=== PATIENT | female | born 2005 | race Native Hawaiian/Other Pacific Islander ===

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

== ENCOUNTER 2025-01-25 10:18 | Emergency (ER) | payer OTHER, SELFPAY ==
--- NOTE | 2025-01-25 10:19 | ED_ITS ---
HPI - Female Genitourinary General Chief complaint: Urogenital-Female Stated complaint: STD Exposure Time Seen by Provider: 01/25/25 10:32 Source: patient, RN notes reviewed and old records reviewed Mode of arrival: ambulatory Limitations: no limitations History of Present Illness HPI Narrative: 19-year-old female presents to the [facility] with concerns of having unprotected sex 1 week ago, partner had tested positive for chlamydia. Last menstrual period was approximately 1 week ago. Denies any symptoms. No itching, burning with urination. Denies any discharge Related Data Home Medications ?Medication ?Instructions ?Recorded ?Confirmed ?Last Taken ?Type escitalopram oxalate 20 mg tablet mg 01/25/25 Unknown History Allergies Allergy/AdvReac Type Severity Reaction Status Date / Time No Known Allergies Allergy Unknown Verified 01/25/25 10:34 Review of Systems Review of Systems: All systems reviewed & are unremarkable except as noted in HPI and below Constitutional: Constitutional: Reports no additional constitutional complaints ENT: Reports system reviewed and no additional complaints, except as documented Cardiovascular: Cardiovascular: Reports no additional cardiovascular complaints, Denies chest pain and Denies dyspnea Respiratory: Respiratory: Reports no additional respiratory complaints, Denies chest congestion, Denies cough and Denies dyspnea Genitourinary: Genitourinary: Reports as per HPI Musculoskeletal: Musculoskeletal: Reports no additional musculoskeletal complaints Integumentary/Breasts: Skin/Breast: Reports system reviewed and no additional complaints, except as docu PMFSH Past Medical History Medical History Sprain of unspecified ligament of right ankle, initial encounter Asthma Unspecified strabismus Restless legs syndrome Plantar warts Iron deficiency Family History Family History Other Alcoholism Depression Social History Social History Social History: Caffeine-soda Smoking status: Never smoker Second hand tobacco smoke exposure: No Alcohol intake: never Substance use: never Substance use type: does not use Lack of Transportation: No Lack of Food: Never True Current Housing: I Have Housing Concerned About Future Housing: No Difficulty Paying Gas/Electric Bills: No Difficulty Paying for Meds: No Currently Unemployed: No Education: Grade School Difficulty w/ Childcare or Family Care: No Comments At the time of my signature, I reviewed and agree with the nursing past medical, surgical, social, and family history. There is no relevant family history pertinent to the patient complaint. Exam Const: General: cooperative, healthy appearing, comfortable, no acute distress, well developed, alert and well nourished Nutritional Appearance: well nourished Orientation/consciousness: patient oriented x3 Limitations: no limitations HENMT: Head: normal to inspection Mouth: Yes Normal oral and palatal mucosa present, Yes lip normal, Yes tongue normal and Yes moist mucous membranes Eyes: General: appearance normal, both eyes and all related structures Alignment and Position: alignment normal Neck: Neck: normal visual inspection, full ROM, no lymphadenopathy and no meningeal signs Chest: Chest palpation & inspection: normal inspection of the chest Resp: Effort & Inspection: normal respiratory effort and able to speak in complete sentences Auscultation: clear to auscultation bilaterally, no crackles, no rales, no rhonchi and no wheezes Cardio: Rate: regular rate GI: GI Palp: No abdominal tenderness Skin: General skin exam: normal color and no rashes or lesions noted Neuro: General: patient oriented x3, gait normal, moves all extremities and no meningeal signs Cognition (Neuro): normal cognition Speech: normal speech Gait exam (Neuro): Normal gait present Extrem: General: normal to inspection, full ROM, capillary refill normal and normal gait Psych: Appearance: grossly normal and well kempt Mental Status: mental status grossly normal Speech and movement: Normal speech and movement present and Clear speech present Affect: normal affect Attitude: cooperative Course Course Level of Care: Express Care Visit Vital Signs Vital signs: Vital Signs Temperature 98.6 F 01/25/25 10:28 Pulse Rate 115 H 01/25/25 10:28 Respiratory Rate 20 01/25/25 10:28 Blood Pressure 127/82 01/25/25 10:28 Pulse Oximetry 100 01/25/25 10:28 Oxygen Delivery Room Air 01/25/25 10:28 Temperature 98.6 F 01/25/25 10:28 Pulse Rate 115 H 01/25/25 10:28 Respiratory Rate 20 01/25/25 10:28 Blood Pressure 127/82 01/25/25 10:28 Pulse Oximetry 100 01/25/25 10:28 Oxygen Delivery Room Air 10/02/25 10:28 Reviewed MDM - Female Genitourinary MDM Narrative Medical decision making narrative: Patient sitting in exam room. Patient is nontoxic, vitals are stable. Patient presents with an exposure to chlamydia 1 week ago. Discussed doing a swab, offered self swabbing which patient is choosing to do. Patient is appropriate for outpatient treatment with close follow-up Discharge instructions reviewed with patient, as well as provided in writing per nursing staff. The instructions also include specific and strict return/GO TO THE ER as well as f/u information. All questions have been answered, and the patient deny any further questions with discharge and discharge plan. Some parts of this dictation were generated by voice recognition software and may contain typographical and/or grammatical inaccuracies. Differential Diagnosis Differential diagnosis: Likely urinary tract infection, bacterial vaginosis, trichomoniasis, cystitis and other (Chlamydia, gonorrhea) Critical Care Time Critical Care Time Critical Care Time: No Discharge Plan Discharge Clinical Impression: Concern about STD in female without diagnosis, Exposure to chlamydia Patient Disposition: Home Condition: Stable Instructions: Chlamydia (ED), Safe Sex Practices (ED) Additional Instructions: You been tested for chlamydia, gonorrhea and Trichomonas. Test results can take up to 3 days to come back. Due to your exposure for chlamydia we have started you on the antibiotic. If you are positive a please follow-up either with your primary care provider or with a superintendent electric power provider or an STI clinic for further evaluation, testing and treatment if needed Patient Language: Liberian Prescriptions: New doxycycline monohydrate 100 mg tablet 100 mg PO BID Qty: 14 0RF No Action escitalopram oxalate 20 mg tablet 1 mg-20 mcg (24)/75 mg (4) tablet 1 tablet PO DAILY Qty: 84 4RF fluoxetine 20 mg capsule 20 mg PO DAILY Qty: 90 1RF Follow-up/Referrals: Reyes Oliveira MD [Primary Care Provider, Family Practice] - 2 Weeks Time of Disposition: 10:52
[2025-01-25 10:28] VITALS: BP 127/82; PULSE 115; RESP 20; TEMP 37; O2SAT 100
--- OUTSIDE RECORDS SUMMARY | 2025-01-25 10:54 | XMS_ITS | Clinical Summary ---
Author Organization 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 Gender Identity Not on file Sexual Orientation Not on file Obstetrics History Para Term AB IAB SAB Ectopic Multiple Livin g Live Births 1 Date Outcome GA Total Labor Labor//3rd Weight Sex Type Anes PTL [place] A1 A5 Name Clin Growth Chart Information Age Height Weight Lysvti-wrz-spmo th Percentile BMI Percentile Head Circum Head Circum Percentile Date 18 years 172.7 cm (5' 8) 63.5 kg (140 lb) 47.32%* 2023 18 years 172.7 cm (5' 8) 63.5 kg (140 lb) 47.69%* 2023 15 years 172.7 cm (5' 8) 63.5 kg (140 lb) 60.95%* 2021 15 years 66.4 kg (146 lb 6.2 oz) 2020 * [facility] (Girls, 2-20 Years) Last Filed Vital Signs Vital Sign Reading Time Taken Comments Blood Pressure 128/75 04/09/2024 7:37 PM METAL CASKET MAKER Pulse 58 04/09/2024 7:37 PM METAL CASKET MAKER Temperature 36.7 C (98 F) 04/09/2024 7:37 PM METAL CASKET MAKER Respiratory Rate 20 04/09/2024 7:37 PM METAL CASKET MAKER Oxygen Saturation 99% 04/09/2024 7:37 PM METAL CASKET MAKER Inhaled Oxygen Concentration - - Weight 63.5 kg (140 lb) 04/09/2024 7:37 PM METAL CASKET MAKER Height 172.7 cm (5' 8) 04/09/2024 7:37 PM METAL CASKET MAKER Body Mass Index 21.29 04/09/2024 7:37 PM METAL CASKET MAKER Body Mass Index Percentile 47.32% 04/09/2024 7:3 7 PM METAL CASKET MAKER Growth Chart: [facility] (Girls, 2- 20 Years) Plan of Treatment Health Maintenance Due Date Last Done Comments Depression Screening 2005 Hepatitis C Screening 2005 Meningococcal B Vaccine (1 o f 2 - Standard) 2021 Regular Well Visit/Exam 18-64 2023 Covid-19 Vaccine (3 - 2024-2 6 season) 2024 10/01/2020, 09/10/2020 Influenza Vaccine (#1) 2024 0, 03/11/2007, 06/17/2006, Additional history exists DTaP/Tdap/Td Vaccine (7 - Td or Tdap) 11/09/2026 11/09/2016, 06/27/2010, 09/16/2006, Additional history exists Hepatitis B Screening Completed 04/07/2006 , 2005, 2005 Pneumococcal vaccine <65 Completed 007, 2005, 2005, Additional history exists Varicella Vaccines Completed 06/27/2010, 06/17/2006 HPV Vaccines Completed 11/27/2019, 11/09/2016 Meningococcal Vaccine Completed 12/24/2022, 017 Insurance [facility] Care Teams Retail Manager In Training Relationship Specialty Start Date End Date Reyes Oliveira MD PCP - General 12/19/20
--- OUTSIDE RECORDS SUMMARY | 2025-01-25 10:54 | XMS_ITS | Clinical Summary ---
Author Organization [facility] Address [address] [place] [address] Care Team Providers Care Electric Frying Pan Repairer Name Role Phone Reyes Oliveira MD Primary Care Provider [phone] Source Comments [facility],non-owned Affiliates and Associated Physician Practices is amultiple site organization consisting of ambulatory clinics and hospital sitesin [place], [place], [place]. This disclosure is being madepursuant to the Care Everywhere program and may not contain all information available regarding this patient. 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 Gender Identity Not on file Sexual Orientation [...] 12/31/2017 5:3 5 PM CDT Growth Chart: [facility] (Girls, 2- 20 Years) Plan of Treatment Health Maintenance Due Date Last Done Comments HIV SCREENING 2020 HPV VACCINE (1 - 3-dose series) 2020 CHLAMYDIA/GONORRHEA SCREENING 2021 MENINGOCOCCAL (Group B) VACC INE SHARED DECISION-MAKING (1 of 2 - Standard) 2021 HEPATITIS C SCREENING 06/06/2023 DEPRESSION SCREENING 04/26/2024 DTAP/TDAP/TD VACCINES (1 - Tdap) 2024 HEPATITIS B VACCINE (1 of 3 - 19+ 3-dose series) 2024 COVID-19 VACCINE (1 - 2023-2 5 season) 2024 INFLUENZA VACCINE (#1) 2024 ZOSTER VACCINE [...] topic Insurance MEDICAID - [place] Care Teams Electric Frying Pan Repairer Relationship Specialty Start Date End Date Reyes Oliveira MD [address] [place] [id number] PCP - General 07/10/11
--- OUTSIDE RECORDS SUMMARY | 2025-01-25 10:54 | XMS_ITS | Clinical Summary ---
Author Organization [facility] Address [address] [place] [address] Phone Care Team Providers Care Process Planner Name Role Phone Reyes Oliveira MD Primary Care Provider [phone]- [phone] Allergies No known active allergies Medications ondansetron (ZOFRAN) 4 MG Tablet Take 1-2 Tablets by mouth every 8 hours as needed for Nausea - 1st line. 10 Tablet 11/14/2024 Active Encounters Date Type Department Care Team Description 11/14/2024 7:58 AM CDT - 11/14/2024 10:37 AM CDT Emergency [facility] Emergency [address] [place] [address] Jordan Whitt MD Nausea and vomiting, unspecified vomiting type Discharge Disposition: Discharged to home or Selfcare 11/14/2024 Travel from Last 3 Months Social History Tobacco Use Types Packs/Day Years Used Date Smoking Tobacco: Never Smokeless Tobacco: Never Tobacco Cessation:Counseling Given: Not Answered Comments Unknown Sex and Gender Information Value Date Recorded Sex Assigned at Female 11/14/2024 8:27 AM CDT Legal Sex Female 9:32 PM CDT Gender Identity Female 11/14/2024 8:26 AM CDT Sexual Orientation Not on file Last Filed Vital Signs Vital Sign Reading Time Taken Comments Blood Pressure 136/86 11/14/2024 10:15 AM CDT Pulse 104 11/14/2024 10:30 AM CDT Temperature 35.5 C (95.9 F) 11/14/2024 8:00 AM CDT Respiratory Rate 18 11/14/2024 10:15 AM CDT Oxygen Saturation 99% 11/14/2024 10:30 AM CDT Inhaled Oxygen Concentration - - Weight 63.5 kg (140 lb) 11/14/2024 8:00 AM CDT Height 170.2 cm (5' 7) 11/14/2024 8:00 AM CDT Body Mass Index 21.93 11/14/2024 8:00 AM CDT Plan of Treatment Health Maintenance Due Date Last Done Comments Hepatitis C Virus (HCV) Screening 2005 Meningococcal B Immunization (1 of 2 - Standard) 2021 Influenza Immunization (#1) 12/25/202402/24, 06/17/2006, 04/07/2006 SARS-COV-2 Immunization (3 - season) 2024 10/01/2020, 09/10/2020 Respiratory Syncytial Virus (RSV) Immunization (Adult) (1 - 1-dose 75+ series) 2080 Hepatitis B Immunization Completed 006, 2005, 2005 Pneumococcal Immunization Combined Aged Out 06/17/2006, 2005, 2005, Additional history exists No longer eligible based on patient's age to complete this topic TdaP Immunization Completed 11/09/2016 Human Papillomavirus (HPV) Immunization Completed 11/27/2019, 11/09/2016 Meningococcal Immunization (ACWY) Completed 12/24/2022, 11/09/2016 Rotavirus Immunization Aged Out No lo nger eligible based on patient's age to complete this topic Procedures Procedure Name Priority Date/Time Associated Diagnosis Comments URINALYSIS REFLEX IF INDICATED BY ABNORMAL RESULTS STAT 11/14/2024 9:[address] ABDOMEN PELVIS W/ CONTRAST Stat with Interpretation 11/14/2024 8:50 AM CDT CBC WITH AUTO DIFFERENTIAL STAT 11/14/2024 8:03 AM CDT PROTIME (PT) (PROTHROMBIN TIME) STAT 11/14/2024 8:03 AM CDT APTT (PTT) STAT 11/14/2024 8:03 AM CDT MAGNESIUM (MG) STAT 11/14/2024 8:03 AM CDT LIPASE STAT 11/14/2024 8:03 AM CDT CMP (COMPREHENSIVE METABOLIC PANEL) STAT 11/14/2024 8:03 AM CDT COMPLETE BLOOD COUNT (CBC) WITH DIFF STAT 11/14/2024 8:03 AM CDT HUMAN CHORIONIC GONADOTROPIN SCRN SERUM STAT 11/14/2024 8:03 AM CDT from Last 3 Months Results * (ABNORMAL) Urinalysis w/ Reflex (11/14/2024 9:22 AM CDT) SPECIFIC GRAVITY 1.005 1.003 - 1.030 11/14/2024 10:15 AM CDT [facility] URINE PH 7.0 5.0 - 9.0 11/14/2024 10:15 AM CDT [facility] WBC ESTERASE Negative Negative 11/14/2024 10:15 AM CDT [facility] NITRITE Positive(A) Negative 11/14/2024 10:15 AM CDT [facility] PROTEIN, RANDOM URINE 15 mg/dL(A) Negative 11/14/2024 10:15 AM CDT [facility] URINE GLUCOSE, QUAL Negative Negative 11/14/2024 10:15 AM CDT [facility] URINE KETONES 5 mg/dL(A) Negative 11/14/2024 10:15 AM CDT [facility] UROBILINOGEN Normal Normal mg/dL 11/14/2024 10:15 AM CDT [facility] URINE BLOOD Negative Negative susi/ul 11/14/2024 10:15 AM CDT [facility] URINALYSIS COLOR Yellow 11/15/19 10:15 AM CDT [facility] URINALYSIS CLARITY Slightly Cloudy 11/14/2024 10:15 AM CDT [facility] WBC (Urine) 0-5 Negative, 0-5 /hpf 11/14/2024 10:15 AM CDT [facility] URINE RBC'S Negative Negative, 0-2 /hpf 11/14/2024 10:15 AM CDT [facility] EPITHELIAL CELLS Small amount /lpf 2024 10:15 AM CDT [facility] BACTERIA, URINE Many(A) Negative /hpf 11/14/2024 10:15 AM CDT [facility] Urine URINE SPECIMEN / Unknown Non-Phlebotomy Collection / Unknown 11/14/2024 9:22 AM CDT 11/14/2024 9:48 AM CDT us Jordan Whitt MD URINE ORDERABLES Final Re sult [facility] [address] [place] [address] * CT ABDOMEN PELVIS W/ CONTRAST (11/14/2024 8:50 AM CDT) Anatomical Region Laterality Modality Abdomen N/A Computed Tomogra phy 11/14/2024 9:14 AM CDT Impressions 11/14/2024 9:17 AM CDT IMPRESSION: 1. Two short-segment small bowel intussusception within the left upper quadrant without obvious lead point which are likely transient/incidental. Consider attention on follow-up if symptoms persist or otherwise clinically appropriate. 2. Otherwise, no acute abnormality within the abdomen or pelvis. Narrative 11/14/2024 9:17 AM CDT EXAM DESCRIPTION: CT ABDOMEN PELVIS W/ CONTRAST REASON FOR STUDY: Nausea and vomiting with generalized abdominal pain starting around 2300 last night after drinking alcohol. Patient reports blood in emesis. TECHNIQUE: CT scan of the abdomen and pelvis performed with intravenous and without oral contrast using helical scanning technique with dynamic intravenous contrast injection. Reconstructed coronal and sagittal MPR images reviewed. All images stored on PACS. Automated exposure control was used as a dose optimization technique for this examination. CONTRAST TYPE/DOSE: 100mL of IOPAMIDOL 76 % IV SOLN injected via Intravenous COMPARISON: None REFERENCE: Per ACR white paper recommendations, unless otherwise specified no follow-up imaging is recommended for incidental renal and adrenal lesions per consensus recommendations based on imaging criteria. Further lab evaluation could be pursued based on clinical findings. FINDINGS: LOWER CHEST: No significant pulmonary abnormalities. No effusion. LIVER: No concerning lesions. GALLBLADDER/BILE DUCTS: No significant biliary ductal dilatation. SPLEEN: Normal size. No focal concerning lesions. PANCREAS: No significant ductal dilatation or discrete lesion. ADRENALS: No measurable nodule. KIDNEYS/URETERS: Excreted contrast within the renal collecting systems. No hydronephrosis. BLADDER/URINARY: No significant wall thickening. REPRODUCTIVE: No concerning adnexal lesion, although the ovaries are poorly evaluated by CT. GASTROINTESTINAL: Short-segment small bowel intussusception within the left upper quadrant without obvious lead point (such as 601 image 81). Adjacent mildly prominent fluid-filled small bowel loop measuring up to approximately 2.9 cm (2; 71). Additional short-segment small bowel intussusception within the adjacent segment of bowel in the central abdomen (2; 85). No significant wall thickening. Appendix is not definitively visualized. However, no significant right lower quadrant inflammatory changes. LYMPH NODES: No pathologically enlarged abdominal or pelvic lymphadenopathy. PERITONEUM/RETROPERITONEUM: No ascites or free air. VASCULATURE: No abdominal aortic aneurysm. MUSCULOSKELETAL: No significant abnormality. OTHER: No significant abnormality. THIS IS AN ELECTRONICALLY VERIFIED FINAL REPORT 11/14/2024 9:14 AM - Electronically signed by Jama Goodman M.D. NS: NS Report ID: [id number] Reading Location: [id number] Procedure Note Jama Goodman MD - 11/14/2024 EXAM DESCRIPTION: CT ABDOMEN PELVIS W/ CONTRAST REASON FOR STUDY: Nausea and vomiting with generalized abdominal pain starting around 2300 last night after drinking alcohol. Patient reports blood in emesis. TECHNIQUE: CT scan of the abdomen and pelvis performed with intravenous and without oral contrast using helical scanning technique with dynamic intravenous contrast injection. Reconstructed coronal and sagittal MPR images reviewed. All images stored on PACS. Automated exposure control was used as a dose optimization technique for this examination. CONTRAST TYPE/DOSE: 100mL of IOPAMIDOL 76 % IV SOLN injected via Intravenous COMPARISON: None REFERENCE: Per ACR white paper recommendations, unless otherwise specified no follow-up imaging is recommended for incidental renal and adrenal lesions per consensus recommendations based on imaging criteria. Further lab evaluation could be pursued based on clinical findings. FINDINGS: LOWER CHEST: No significant pulmonary abnormalities. No effusion. LIVER: No concerning lesions. GALLBLADDER/BILE DUCTS: No significant biliary ductal dilatation. SPLEEN: Normal size. No focal concerning lesions. PANCREAS: No significant ductal dilatation or discrete lesion. ADRENALS: No measurable nodule. KIDNEYS/URETERS: Excreted contrast within the renal collecting systems. No hydronephrosis. BLADDER/URINARY: No significant wall thickening. REPRODUCTIVE: No concerning adnexal lesion, although the ovaries are poorly evaluated by CT. GASTROINTESTINAL: Short-segment small bowel intussusception within the left upper quadrant without obvious lead point (such as 601 image 81). Adjacent mildly prominent fluid-filled small bowel loop measuring up to approximately 2.9 cm (2; 71). Additional short-segment small bowel intussusception within the adjacent segment of bowel in the central abdomen (2; 85). No significant wall thickening. Appendix is not definitively visualized. However, no significant right lower quadrant inflammatory changes. LYMPH NODES: No pathologically enlarged abdominal or pelvic lymphadenopathy. PERITONEUM/RETROPERITONEUM: No ascites or free air. VASCULATURE: No abdominal aortic aneurysm. MUSCULOSKELETAL: No significant abnormality. OTHER: No significant abnormality. THIS IS AN ELECTRONICALLY VERIFIED FINAL REPORT 11/14/2024 9:14 AM - Electronically signed by Jama Goodman M.D. NS: NS Report ID: [id number] Reading Location: [id number] IMPRESSION: 1. Two short-segment small bowel intussusception within the left upper quadrant without obvious lead point which are likely transient/incidental. Consider attention on follow-up if symptoms persist or otherwise clinically appropriate. 2. Otherwise, no acute abnormality within the abdomen or pelvis. us Jordan Whitt MD IMG CT ORDERABLES Final R esult * (ABNORMAL) CBC with Auto Differential (11/14/2024 8:03 AM CDT) [facility] WBC 14.29(H) 4.00 - 12.00 10(3)/mcL 11/14/2024 8:14 AM CDT [facility] RBC 4.60 3.80 - 5.30 10(6)/mcL 11/14/2024 8:14 AM CDT [facility] HEMOGLOBIN (HGB) 14.8 12.0 - 15.8 g/dL 11/14/2024 8:14 AM CDT [facility] HEMATOCRIT (HCT) 42.8 36.0 - 47.0 % 11/14/2024 8:14 AM CDT [facility] MCV 93.0 82.0 - 96.0 fL 11/14/2024 8:14 AM CDT [facility] MCH 32.2 26.0 - 34.0 pg 11/14/2024 8:14 AM CDT [facility] MCHC 34.6 31.0 - 36.0 g/dL 11/14/2024 8:14 AM CDT [facility] PLATELET COUNT 380 140 - 440 10(3)/mcL 11/14/2024 8:14 AM CDT [facility] RDW 12.7 11.8 - 15.5 % 11/14/2024 8:14 AM CDT [facility] MPV 9.7 9.7 - 12.4 fL 11/14/2024 8:14 AM CDT [facility] NEUTROPHILS 78.5(H) 47.0 - 73.0 % 11/14/2024 8:14 AM CDT [facility] LYMPHOCYTES 17.5(L) 18.0 - 42.0 % 11/14/2024 8:14 AM CDT [facility] MONOCYTES 2.7(L) 4.0 - 12.0 % 11/14/2024 8:14 AM CDT [facility] EOSINOPHILS 0.1 0.0 - 5.0 % 11/14/2024 8:14 AM CDT [facility] BASOPHILS 0.6 0.0 - 1.0 % 11/14/2024 8:14 AM CDT [facility] IMMATURE GRANULOCYTE 0.6(H) 0.0 - 0.4 % 11/14/2024 8:14 AM CDT [facility] Comment:Immature Granulocyte s includes Metamyelocytes, Myelocytes, and Promyelocytes. ABSOLUTE NEUTROPHILS 11.21(H) 1.60 - 7.70 10(3)/[facility] 11/14/2024 8:14 AM CDT [facility] ABSOLUTE LYMPHOCYTES 2.50 1.30 - 3.20 10(3)/[facility] 11/14/2024 8:14 AM CDT [facility] ABSOLUTE MONOCYTES 0.38 0.20 - 1.00 10(3)/[facility] 11/14/2024 8:14 AM CDT [facility] ABSOLUTE EOSINOPHIL 0.02 0.00 - 0.40 10(3)/[facility] 11/14/2024 8:14 AM CDT [facility] ABSOLUTE BASOPHILS 0.09 0.00 - 0.10 10(3)/[facility] 11/14/2024 8:14 AM CDT [facility] ABSOLUTE IMMATURE GRANULOCYTE 0.09(H) 0.00 - 0.03 10 (3) mcL. 11/14/2024 8:14 AM CDT [facility] NRBC PER 100 WBC 0 11/15/19 8:14 AM CDT [facility] Blood Venipuncture / Unknown 11/14/2024 8:03 AM CDT 11/14/2024 8:11 AM CDT us Jordan Whitt MD HEMATOLOGY ORDERABLES Fin al Result [facility] [address] [place] [address] * (ABNORMAL) PTT (11/14/2024 8:03 AM CDT) PTT 23(L) 24 - 36 sec 11/14/2024 8:27 AM CDT [facility] Blood Venipuncture / Unknown 11/14/2024 8:03 AM CDT 11/14/2024 8:11 AM CDT Narrative [facility] - 11/14/2024 8:27 AM CDT Therapeutic range for unfractionated heparin at 0.3-0.7 U/mL is an aPTT value in the range of 71-100 seconds. Critical value for the PTT test is >= 122 seconds. Jordan Whitt MD HEMATOLOGY ORDERABLES Fin al Result [facility] [address] [place] [address] * PT / INR (11/14/2024 8:03 AM CDT) [facility] PROTIME-PATIENT 13.3 11.6 - 14.8 sec 11/14/2024 8:27 AM CDT [facility] INR 1.0 0.9 - 1.2 11/14/2024 8:27 AM CDT [facility] Comment: Therapeutic Ranges INR = 2.0-3.0: Venous thromb, atrial fib, pul embolism, tissue heart valve, ami. INR = 2.5-3.5: Mechanical heart valve Critical value for INR is >/= 4.5 Blood Venipuncture / Unknown 11/14/2024 8:03 AM CDT 11/14/2024 8:11 AM CDT us Jordan Whitt MD HEMATOLOGY ORDERABLES Fin al Result [facility] [address] [place] [address] * Human Chorionic Gonadotropin Scrn Serum [id number] (11/14/2024 8:03 AM CDT) PREG-HCG Negative Negative 11/14/2024 8:26 AM CDT [facility] Blood Venipuncture / Unknown 11/14/2024 8:03 AM CDT 11/14/2024 8:11 AM CDT us Jordan Whitt MD CHEMISTRY ORDERABLES Digna l Result [facility] [address] [place] [address] * Magnesium Level (11/14/2024 8:03 AM CDT) MAGNESIUM 1.7 1.6 - 2.6 mg/dL 11/14/2024 8:31 AM CDT [facility] Blood Venipuncture / Unknown 11/14/2024 8:03 AM CDT 11/14/2024 8:11 AM CDT us Jordan Whitt MD CHEMISTRY ORDERABLES Digna l Result Performing Organization Address City/[facility]/ZIP Co de Phone Number [facility] [address] [place] [address] * Lipase (11/14/2024 8:03 AM CDT) LIPASE 23 8 - 78 U/L 11/14/2024 8:31 AM CDT [facility] Blood Venipuncture / Unknown 11/14/2024 8:03 AM CDT 11/14/2024 8:11 AM CDT us Jordan Whitt MD CHEMISTRY ORDERABLES Digna l Result Performing Organization Address City/[facility]/ZIP Co de Phone Number [facility] [address] [place] [address] * (ABNORMAL) CMP (11/14/2024 8:03 AM CDT) SODIUM 140 136 - 145 mmol/L 11/14/2024 8:31 AM CDT [facility] POTASSIUM 3.3(L) 3.5 - 5.1 mmol/L 11/14/2024 8:31 AM CDT [facility] CHLORIDE 109(H) 98 - 107 mmol/L 11/14/2024 8:31 AM CDT [facility] CO2, VENOUS 14(L) 22 - 30 mmol/L 11/14/2024 8:31 AM CDT [facility] ANION GAP 20.3(H) <18.0 mmol/L 11/14/2024 8:31 AM T [facility] GLUCOSE 169(H) 70 - 99 mg/dL 11/14/2024 8:31 AM T [facility] BUN 11 5 - 18 mg/dL 11/14/2024 8:31 AM T [facility] CREATININE, BLOOD 0.97 0.60 - 1.00 mg/dL 11/14/2024 8:31 AM T [facility] BUN/CREATININE RATIO 11(L) 12 - 20 ratio 11/14/2024 8:31 AM T [facility] TOTAL PROTEIN 8.6(H) 6.0 - 8.0 g/dL 11/14/2024 8:31 AM T [facility] ALBUMIN 4.5 3.5 - 5.0 g/dL 11/14/2024 8:31 AM T [facility] A/G RATIO 1.1 1.0 - 2.2 11/14/2024 8:31 AM T [facility] CALCIUM 9.7 8.7 - 10.5 mg/dL 11/14/2024 8:31 AM T [facility] T BILI 0.5 0.2 - 1.2 mg/dL 11/14/2024 8:31 AM T [facility] SGOT (AST) 37 <43 U/L 11/14/2024 8:31 AM CDT [facility] SGPT (ALT) 26 <56 U/L 11/14/2024 8:31 AM CDT [facility] ALKALINE PHOSPHATASE 60 40 - 150 U/L 11/14/2024 8:31 AM CDT [facility] GFR, ESTIMATED >60 >=60 11/14/2024 8:31 AM CDT [facility] Comment: Creatinine Clearance is the preferred criteria for selecting drug dose adjustments in renally impaired patients. The GFR is provided as additional pertinent clinical information. GFR is reported in mL/min/1.73 sq m. Calculation based on the Chronic Kidney Disease Epidemiology Collaboration (CKD- EPI) equation refit without adjustment for race. UNABLE TO CALCULATE GFR, EST. 025 8:31 AM CDT [facility] GFR, EST. NONAFRICAN 11/14/2024 8:31 AM CDT [facility] Blood Venipuncture / Unknown 11/14/2024 8:03 AM CDT 11/14/2024 8:11 AM CDT us Jordan Whitt MD CHEMISTRY ORDERABLES Digna l Result [facility] [address] [place] [address] from Last 3 Months Insurance MEDICAID [place] Care Teams Process Planner Relationship Specialty Start Date End Date Reyes Oliveira MD [address] [place] [address] PCP - General Family Medicine 11/14/24
[2025-01-25 20:04] LABS: Trichomonas Vag PCR NOT DETECTED (NOT DETECTE)
== END 2025-01-25 11:04 | disposition home or self-care (01) ==
PROVIDERS: Emergency Provider Nurse Practitioner; PCP Family Medicine
DX: Z11.3 Encounter for screening for infections with a predominantly sexual mode of transmission (principal); Z20.2 Contact with and (suspected) exposure to infections with a predominantly sexual mode of transmission
CPT/HCPCS: 87491; 87591; 87661; 99213; G0463

== ENCOUNTER 2025-02-28 15:16 | Outpatient (CLI) | payer OTHER, SELFPAY ==
[2025-02-28 16:25] LABS: Hepatitis B Surface Antigen Negative (Negative)
[2025-02-28 16:42] LABS: HIV 1/2 Ab P24 Ag Result Negative (Negative)
[2025-02-28 17:21] LABS: Syphilis IgG/IgM Antibody Non-Reactive (Nonreactive)
--- OUTSIDE RECORDS SUMMARY | 2025-03-01 14:50 | XMS_ITS | Clinical Summary ---
Author Organization [facility] Address [address] [place] [address] Phone Care Team Providers Care Lime Kiln Operator Name Role Phone Reyes Oliveira MD Primary Care Provider +1- [phone] Allergies No known active allergies Medications ondansetron (ZOFRAN) 4 MG Tablet Take 1-2 Tablets by mouth every 8 hours as needed for Nausea - 1st line. 10 Tablet 11/14/2024 Active Social History Tobacco Use Types Packs/Day Years [...] age to complete this topic Insurance MEDICAID [place] Care Teams Lime Kiln Operator Relationship Specialty Start Date End Date Reyes Oliveira MD [address] [place] [address] [address] [place] [address] PCP - General Family Medicine 11/14/24
--- OUTSIDE RECORDS SUMMARY | 2025-03-01 14:50 | XMS_ITS | Clinical Summary ---
Author Organization [facility] Address [address] [place] [address] Care Team Providers Care Labor Contractor Name Role Phone Reyes Oliveira MD Primary Care Provider +1- [phone] Source Comments [facility],non-owned Affiliates and Associated Physician Practices is amultiple site organization consisting of ambulatory clinics and hospital sitesin [place], [place], [place] and [place]. This disclosure is being madepursuant to the Care Everywhere program and may not contain all information available regarding this patient. 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
--- OUTSIDE RECORDS SUMMARY | 2025-03-01 14:50 | XMS_ITS | Clinical Summary ---
Author Organization [facility] [address] [place] [address] Care Team Providers Care Raw Stock Machine Feeder Name Role Phone Reyes Oliveira MD Primary Care Provider [phone] [phone] Allergies No known active allergies Medications escitalopram [...] on file Legal Sex Female 10:15 AM ADVERTISING REP Gender Identity Not on file Sexual Orientation Not on file Obstetrics History Para Term AB IAB SAB Ectopic Multiple Livin g Live Births 1 Date Outcome GA Total Labor Labor//3rd Weight Sex Type Anes PTL [place] A1 A5 Name Clin Growth Chart Information Age Height Weight Cbjpye-hra-cvph th Percentile BMI Percentile Head Circum Head Circum Percentile Date 18 years 172.7 cm (5' 8) 63.5 kg (140 lb) 47.32%* 2023 18 years 172.7 cm (5' 8) 63.5 kg (140 lb) 47.69%* 2023 15 years 172.7 cm (5' 8) 63.5 kg (140 lb) 60.95%* 2021 15 years 66.4 kg (146 lb 6.2 oz) 2020 * [facility] (Girls, 2-20 Years) Last Filed Vital Signs Vital Sign Reading Time Taken Comments Blood Pressure 128/75 04/09/2024 7:37 PM ADVERTISING REP Pulse 58 04/09/2024 7:37 PM ADVERTISING REP Temperature 36.7 C (98 F) 04/09/2024 7:37 PM ADVERTISING REP Respiratory Rate 20 04/09/2024 7:37 PM ADVERTISING REP Oxygen Saturation 99% 04/09/2024 7:37 PM ADVERTISING REP Inhaled Oxygen Concentration - - Weight 63.5 kg (140 lb) 04/09/2024 7:37 PM ADVERTISING REP Height 172.7 cm (5' 8) 04/09/2024 7:37 PM ADVERTISING REP Body Mass Index 21.29 04/09/2024 7:37 PM ADVERTISING REP Body Mass Index Percentile 47.32% 04/09/2024 7:3 7 PM ADVERTISING REP Growth Chart: [facility] (Girls, 2- 20 Years) Plan of [...] 11/09/2016 Meningococcal Vaccine Completed 12/24/2022, 017 Insurance [facility] Care Teams Raw Stock Machine Feeder Relationship Specialty Start Date End Date Reyes Oliveira MD PCP - General 12/19/20
== END 2025-02-28 15:17 | disposition home or self-care (01) ==
LOC: ANHLAB 15:17
PROVIDERS: PCP Family Medicine; Visit Provider Nurse Practitioner Family
DX: Z11.3 Encounter for screening for infections with a predominantly sexual mode of transmission (principal)
CPT/HCPCS: 36415; 86593; 86703; 86803; 87340; G0432